=== PATIENT | female | born 1995 | race Caucasian/White ===

== ENCOUNTER → 2025-04-06 | Outpatient (CLI) | payer OTHER | LOC: M WHC 09:53 | PROVIDERS: ATTEND Advanced Practice Midwife | DX: O09.292 Supervision of pregnancy with other poor reproductive or obstetric history, second trimester (principal); Z3A.19 19 weeks gestation of pregnancy ==

== ENCOUNTER → 2025-04-28 | Outpatient (CLI) | payer OTHER | LOC: M RAD 15:37 | PROVIDERS: ATTEND Nurse Practitioner Family | DX: Z34.82 Encounter for supervision of other normal pregnancy, second trimester (principal); Z3A.22 22 weeks gestation of pregnancy ==

== ENCOUNTER → 2025-05-21 | Outpatient (CLI) | payer OTHER | LOC: M WHC 13:12 | PROVIDERS: ATTEND Nurse Practitioner Family | DX: Z34.82 Encounter for supervision of other normal pregnancy, second trimester (principal); Z3A.25 25 weeks gestation of pregnancy ==

== ENCOUNTER → 2025-06-01 | Outpatient (CLI) | payer OTHER ==
[2025-06-01 11:04] LABS: PLATELET COUNT, AUTOMATED 178 10^3/uL (150-450)
[2025-06-01 11:31] LABS: GLUCOSE CHALLENGE TEST 1 HOUR 48 MG/DL (LESS THAN 140)
[2025-06-01 12:01] LABS: HIV 1&2 SCREEN NEGATIVE (NEGATIVE)
[2025-06-01 12:04] LABS: Trichomonas vaginalis (AMP) NOT DETECTED (NEGATIVE)
[2025-06-01 12:09] LABS: HEPATITIS C VIRUS ABY INDEX < 0.02 INDEX (<0.8)
[2025-06-01 12:27] LABS: GC DNA AMPLIFICATION NEGATIVE (NEGATIVE)
== END ==
LOC: M PLALAB 08:32
PROVIDERS: ATTEND Nurse Practitioner Family
DX: Z34.82 Encounter for supervision of other normal pregnancy, second trimester (principal)

== ENCOUNTER → 2025-08-03 | Outpatient (REF) | payer OTHER | LOC: M PLALAB 13:21 | PROVIDERS: ATTEND Student in an Organized Health Care Education/Training Program | DX: Z3A.36 36 weeks gestation of pregnancy (principal) ==